=== PATIENT | female | born 1980 ===

== ENCOUNTER 2018-12-18 10:25 | Outpatient (CLI) | payer SELFPAY | END 2018-12-18 10:26 | disposition home or self-care (01) | LOC: C.USIC 10:25 ==

== ENCOUNTER 2019-02-05 14:56 | Outpatient (CLI) | payer OTHER | END 2019-02-05 14:57 | disposition home or self-care (01) | LOC: C.USIC 14:57 | DX: R39.11 Hesitancy of micturition (principal); R10.2 Pelvic and perineal pain ==